=== PATIENT | female | born 1950 | race Caucasian/White ===

== ENCOUNTER 2021-11-08 09:59 | Day surgery (SDC) | payer OTHER ==
[~2021-11-08] VITALS: Ht 154.9 cm; Wt 78.5 kg
[2021-11-08] MEDS ORDERED: LIDOCAINE 2% 100 MG/5 ML UJET TP ONE (11:40)
[2021-11-08] MEDS ORDERED: fentaNYL citrate 0.05 MG/ML VIAL ONE (11:40)
[2021-11-08] MEDS ORDERED: fentaNYL citrate 0.05 MG/ML VIAL IVP ONE (12:55)
[2021-11-08] MEDS ORDERED: EPINEPHrine PFS 0.1 MG/ML SYR IVP ONE (15:43)
== END 2021-11-08 13:30 | disposition home or self-care (01) ==
LOC: MDS 09:59 → MMU 10:02 → MDS 13:30
PROVIDERS: ATTEND Internal Medicine Gastroenterology
DX: Z12.11 Encounter for screening for malignant neoplasm of colon (principal); K59.00 Constipation, unspecified; D12.3 Benign neoplasm of transverse colon; I10 Essential (primary) hypertension; E11.9 Type 2 diabetes mellitus without complications; Z90.49 Acquired absence of other specified parts of digestive tract; Z79.84 Long term (current) use of oral hypoglycemic drugs; Z79.899 Other long term (current) drug therapy; Z20.822 Contact with and (suspected) exposure to COVID-19
CPT/HCPCS: 45385; 87426; J0171; J3010